=== PATIENT | female | born 1950 | race Caucasian/White ===

== ENCOUNTER 2022-09-03 14:15 | Emergency (ER) | payer MEDICARE, OTHER ==
[~2022-09-03] VITALS: Ht 162.5 cm; Wt 74.8 kg
--- NOTE | 2022-09-03 14:33 | ED General ---
General Chief Complaint: Dizziness/Syncope Stated Complaint: DIZZINESS/LOW BP History of Present Illness Date Seen by Provider: Sep 03, 2022 Time Seen by Provider: 14:15 Initial Comments Patient is a 8-year-old female who presents to the emergency department via EMS after feeling dizzy and [place] a [place] the [place]. She states she had stood up from sitting just prior to the symptoms beginning. She states she was lowered to the ground by family. She did not fall nor did she hit her head. EMS state patient was mildly hypotensive upon their arrival but her blood pressure improved on the way to the hospital without any direct intervention. Patient states she feels much better now. She denies any chest pain, shortness of air, vision change, focal numbness/weakness. She denies any history of similar symptoms. She states she has not been drinking or eating very much today. EMS state blood glucose was not low. Allergies and Home Medications Allergies Coded Allergies: No Known Drug Allergies (Unverified , 09/03/22) Patient Home Medication List Home Medication List Reviewed: Yes Review of Systems Review of Systems Constitutional: see HPI EENTM: no symptoms reported Respiratory: no symptoms reported Cardiovascular: see HPI Gastrointestinal: no symptoms reported Genitourinary: no symptoms reported Musculoskeletal: no symptoms reported Skin: no symptoms reported Psychiatric/Neurological: See HPI Hematologic/Lymphatic: No Symptoms Reported Immunological/Allergic: no symptoms reported Physical Exam Vital Signs Vital Signs - First Documented 09/03/22 14:16 Pulse 78 Resp 16 B/P (MAP) 100/73 (82) Pulse Ox 96 O2 Delivery Nasal Cannula O2 Flow Rate 2.00 Capillary Refill : Height, Weight, BMI Height: '" Weight: lbs. oz. kg; BMI Method: General Appearance: No Apparent Distress, WD/WN HEENT: PERRL/EOMI, TMs Normal, Normal ENT Inspection, Pharynx Normal Neck: Full Range of Motion, Normal Inspection, Non Tender Respiratory: Chest Non Tender, Lungs Clear, Normal Breath Sounds, No Accessory Muscle Use, No Respiratory Distress Cardiovascular: Regular Rate, Rhythm, Normal Peripheral Pulses Gastrointestinal: Normal Bowel Sounds, No Organomegaly, Non Tender, Soft Back: Normal Inspection, No Vertebral Tenderness Extremity: Normal Capillary Refill, Normal Inspection, Normal Range of Motion, Non Tender, No Calf Tenderness Neurologic/Psychiatric: Alert, Oriented x3, No Motor/Sensory Deficits, Normal Mood/Affect Skin: Normal Color, Warm/Dry Progress/Results/Core Measures Suspected Sepsis SIRS Temperature: Pulse: Respiratory Rate: Laboratory Tests 09/03/22 14:30: White Blood Count 11.4H Blood Pressure / Mean: Laboratory Tests 09/03/22 14:30: Creatinine 1.37H, Platelet Count 249, Total Bilirubin 0.6 Results/Orders Lab Results Laboratory Tests Test 09/03/22 14:30 Range/Units White Blood Count 11.4 H 4.3-11.0 10^3/uL Red Blood Count 5.41 H 3.80-5.11 10^6/uL Hemoglobin 17.2 H 11.5-16.0 g/dL Hematocrit 50 35-52 % Mean Corpuscular Volume 92 80-99 fL Mean Corpuscular Hemoglobin 32 25-34 pg Mean Corpuscular Hemoglobin Concent 35 32-36 g/dL Red Cell Distribution Width 11.8 10.0-14.5 % Platelet Count 249 130-400 10^3/uL Mean Platelet Volume 10.1 9.0-12.2 fL Immature Granulocyte % (Auto) 0 % Neutrophils (%) (Auto) 70 42-75 % Lymphocytes (%) (Auto) 23 12-44 % Monocytes (%) (Auto) 6 0-12 % Eosinophils (%) (Auto) 1 0-10 % Basophils (%) (Auto) 0 0-10 % Neutrophils # (Auto) 7.9 H 1.8-7.8 10^3/uL Lymphocytes # (Auto) 2.6 1.0-4.0 10^3/uL Monocytes # (Auto) 0.7 0.0-1.0 10^3/uL Eosinophils # (Auto) 0.1 0.0-0.3 10^3/uL Basophils # (Auto) 0.1 0.0-0.1 10^3/uL Immature Granulocyte # (Auto) 0.0 0.0-0.1 10^3/uL Percent Immature Platelet Fraction 4.4 0.0-7.6 % Sodium Level 130 L 135-145 MMOL/L Potassium Level 4.2 3.6-5.0 MMOL/L Chloride Level 94 L 98-107 MMOL/L Carbon Dioxide Level 20 L 21-32 MMOL/L Anion Gap 16 H 5-14 MMOL/L Blood Urea Nitrogen 18 7-18 MG/DL Creatinine 1.37 H 0.60-1.30 MG/DL Estimat Glomerular Filtration Rate 42 BUN/Creatinine Ratio 13 Glucose Level 259 H 70-105 MG/DL Calcium Level 9.7 8.5-10.1 MG/DL Corrected Calcium 9.8 8.5-10.1 MG/DL Total Bilirubin 0.6 0.1-1.0 MG/DL Aspartate Amino Transf (AST/SGOT) 15 5-34 U/L Alanine Aminotransferase (ALT/SGPT) 14 0-55 U/L Alkaline Phosphatase 77 40-136 U/L Troponin I < 0.028 <0.028 NG/ML B-Type Natriuretic Peptide 56.6 <100.0 PG/ML Total Protein 6.7 6.4-8.2 GM/DL Albumin 3.9 3.2-4.5 GM/DL Smear Scan YES My Orders Orders - ROSEANNE SELLERS [employer] Cbc With Automated Diff (09/03/22 14:27) Comprehensive Metabolic Panel (09/03/22 14:27) Ekg Tracing (09/03/22 14:27) Iv/Invasive Line Insertion .IV INSERT (09/03/22 14:27) Chest 1 View, Ap/Pa Only (09/03/22 14:27) Troponin I [place] (09/03/22 14:27) Bnp [place] (09/03/22 14:27) Vital Signs/I&O 09/03/22 09/03/22 14:16 16:02 Pulse 78 70 Resp 16 16 B/P (MAP) 100/73 (82) 120/46 Pulse Ox 96 95 O2 Delivery Nasal Cannula Room Air O2 Flow Rate 2.00 Capillary Refill : Progress Note : Progress Note Patient is nontoxic and well-hydrated on exam. No adventitious lung sounds or increased work of breathing noted. Vital signs are reassuring. Patient is awake alert and oriented and answers all questions appropriately. Patient was initially on 2 L of oxygen as placed by EMS but this was removed and her room air oxygen saturations were in the mid 90s. Patient denies any shortness of breath. EKG without any acute ischemic change or arrhythmia. Laboratory evaluation is largely unremarkable. Chest x-ray is acutely negative. Patient states she f eels completely back to her baseline and is desiring to go home. This seems appropriate given reassuring work-up. Discussed importance of close follow-up with PCP. Strict return precautions for urgent symptomology discussed. Patient verbalized understanding. ECG EKG : EKG Time: 14:59 Rhythm: Normal Sinus Intervals: Normal ECG Impression: Nonspecific Changes Departure Impression Primary Impression: Near syncope Disposition: 01 HOME, SELF-CARE Condition: Stable Departure-Patient Inst. Decision time for Depature: 15:50 Referrals: NO,LOCAL PHYSICIAN (PCP/Family) Primary Care Physician Patient Instructions: Syncope (Fainting) (DC) ROSEANNE SELLERS APRN Sep 03, 2022 14:33
[2022-09-03 14:40] LABS: ALBUMIN 3.9 GM/DL (3.2-4.5)
[2022-09-03 14:41] LABS: CHLORIDE 94 MMOL/L (98-107); EOSINOPHILS # (AUTO) 0.1 10^3/uL (0.0-0.3); POTASSIUM 4.2 MMOL/L (3.6-5.0); SODIUM 130 MMOL/L (135-145)
[2022-09-03 14:42] LABS: CALCIUM 9.7 MG/DL (8.5-10.1)
[2022-09-03 14:43] LABS: BASOPHILS # (AUTO) 0.1 10^3/uL (0.0-0.1); BASOPHILS % (AUTO) 0 % (0-10); EOSINOPHILS % (AUTO) 1 % (0-10); GLUCOSE 259 MG/DL (70-105); HEMATOCRIT 50 % (35-52); HEMOGLOBIN 17.2 g/dL (11.5-16.0); LYMPHOCYTES # (AUTO) 2.6 10^3/uL (1.0-4.0); LYMPHOCYTES % (AUTO) 23 % (12-44); MEAN CORPUSCULAR HEMOGLOBIN 32 pg (25-34); MEAN CORPUSCULAR HGB CONC 35 g/dL (32-36); MEAN CORPUSCULAR VOLUME 92 fL (80-99); MEAN PLATELET VOLUME 10.1 fL (9.0-12.2); MONOCYTES # (AUTO) 0.7 10^3/uL (0.0-1.0); MONOCYTES % (AUTO) 6 % (0-12); NEUTROPHILS # (AUTO) 7.9 10^3/uL (1.8-7.8); NEUTROPHILS % (AUTO) 70 % (42-75); PLATELET COUNT 249 10^3/uL (130-400); TOTAL PROTEIN 6.7 GM/DL (6.4-8.2); WHITE BLOOD COUNT 11.4 10^3/uL (4.3-11.0)
[2022-09-03 14:44] LABS: CARBON DIOXIDE 20 MMOL/L (21-32)
[2022-09-03 14:45] LABS: BILIRUBIN,TOTAL 0.6 MG/DL (0.1-1.0)
[2022-09-03 14:46] LABS: ALKALINE PHOSPHATASE 77 U/L (40-136)
[2022-09-03 14:47] LABS: CREATININE SERUM 1.37 MG/DL (0.60-1.30); GFR ESTIMATED 42; SMEAR SCAN COMMENT YES
[2022-09-03 14:48] LABS: BUN/CREATININE RATIO 13
[2022-09-03 14:50] LABS: ALANINE AMINOTRANSFERASE 14 U/L (0-55)
--- NOTE | 2022-09-03 14:52 | Diagnostic Imaging Report ---
CLINICAL INDICATION: Patient with near syncope. EXAM: Portable chest x-ray upright view. COMPARISON: None. FINDINGS: Lungs/pleura: Lungs are clear. There is no pneumothorax. There is no pleural effusion. Mediastinum: Unremarkable. Pulmonary vasculature: Unremarkable. Heart: There is cardiomegaly. Bones/extrathoracic soft tissue: There are degenerative spurs involving the thoracic spine. IMPRESSION: 1: There is no lung infiltrate. 2: There is cardiomegaly with no significant pulmonary vascular congestion. Dictated by: Dictated on workstation # [id number]
[2022-09-03 16:02] VITALS: BP 120/46
== END 2022-09-03 16:02 | disposition home or self-care (01) ==
LOC: ER 14:18
DX: R55 Syncope and collapse (principal)
CPT/HCPCS: 36415; 71045; 80053; 83880; 84484; 85025; 93005